=== PATIENT | female | born 1990 | race Caucasian/White ===

== ENCOUNTER 2020-12-08 14:29 | Emergency (ER) | payer BC ==
[2020-12-08] MEDS ORDERED: Rabies Vaccine Human 2.5 UNITS VIAL ONE (15:20)
== END 2020-12-08 16:02 | disposition home or self-care (01) ==
LOC: CSHERS 14:29
DX: S80.811A Abrasion, right lower leg, initial encounter (principal); Z23 Encounter for immunization; W55.03XA Scratched by cat, initial encounter
CPT/HCPCS: 90376; 90471; 90675; 96372

== ENCOUNTER → 2020-12-11 | Day surgery (SDC) | payer BC ==
[~2020-12-11] MED LIST: Rabies Vaccine Human 2.5 UNITS VIAL ONE
== END ==
LOC: CSHER/OP 06:53
PROVIDERS: ATTEND Student in an Organized Health Care Education/Training Program
DX: Z29.14 Encounter for prophylactic rabies immune globulin (principal)
CPT/HCPCS: 90471; 90675